=== PATIENT | male | born 1995 | race Two or more races ===

== ENCOUNTER 2019-01-02 00:07 | Emergency (ER) | payer OTHER ==
[~2019-01-02] VITALS: Ht 170.2 cm; Wt 81.6 kg
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
[2019-01-02] MEDS ORDERED: HALOPERIDOL LACTATE INJ 5 MG/ML VIAL ONE (00:10)
[2019-01-02] MEDS ORDERED: diphenhydrAMINE HCL 50 MG/ML VIAL ONE (00:10)
--- NOTE | 2019-01-02 00:10 | NUR ---
SEEN AND EXAMINED BY .
[2019-01-02] MEDS ORDERED: LORAZEPAM INJ 2 MG/ML VIAL ONE (00:11)
--- NOTE | 2019-01-02 00:28 | NUR ---
IV LINE ESTABLISHED, BLOOD DRAWNED AND SENT TO LAB.
[2019-01-02] MEDS ORDERED: diphenhydrAMINE HCL 50 MG/ML VIAL IM ONE (00:30)
[2019-01-02] MEDS ORDERED: LORAZEPAM INJ 2 MG/ML VIAL IM/IV ONE (00:30)
[2019-01-02] MEDS ORDERED: HALOPERIDOL LACTATE INJ 5 MG/ML VIAL IM ONE (00:30)
[2019-01-02 00:33] LABS: BASOPHILS # (AUTO) 0.1 /CMM (0.0-0.2); BASOPHILS % (AUTO) 0.6 % (0.0-2.0); EOSINOPHILS % (AUTO) 0.1 % (0.0-6.0); HEMATOCRIT 48 % (39-51); HEMOGLOBIN 16.1 g/dL (13.5-17.5); LYMPHOCYTES # (AUTO) 1.4 /CMM (0.8-4.8); MEAN CORPUSCULAR HGB CONC 34 g/dl (31.0-36.0); MEAN CORPUSCULAR VOLUME 95 fL (80-96); MONOCYTES # (AUTO) 0.8 /CMM (0.1-1.30); MONOCYTES % (AUTO) 5.7 % (2.0-12.0); NEUTROPHILS # (AUTO) 11.8 /CMM (1.8-8.9); NEUTROPHILS % (AUTO) 83.6 % (43.0-81.0); PLATELET COUNT (AUTO) 264 /CMM (150-450); RED BLOOD CELL COUNT(AUTO) 5.04 MIL/uL (4.5-6.0); WHITE BLOOD COUNT (AUTO) 14.1 K/uL (4.3-11.0)
[2019-01-02 00:38] LABS: CALCIUM, SERUM 8.8 mg/dL (8.5-10.1); CREATININE 1.5 mg/dL (0.6-1.3); POTASSIUM 3.6 mmol/L (3.5-5.1)
[2019-01-02] MEDS ORDERED: CT SWABBABLE VALVE TRANS SET 1 EA INFUS.SET MC ONE (00:50)
[2019-01-02] MEDS ORDERED: IOHEXOL-300 100 ML VIAL IV ONE ×2 (00:50→01:13)
[2019-01-02] MEDS ORDERED: IV NS 0.9% 250 ML IV ONE (00:50)
--- NOTE | 2019-01-02 00:55 | NUR ---
PT IS WHEELED TO CT SCAN VIA [facility].
--- NOTE | 2019-01-02 01:25 | NUR ---
PT IS BACK FROM THE CT SCAN.
[2019-01-02] MEDS ORDERED: IV NS 0.9% 1,000 ML IV ONE (01:30)
[2019-01-02] MEDS ORDERED: LIDOCAINE /MPF 1% VIAL 5 ML VIAL ONE (01:32)
--- NOTE | 2019-01-02 01:49 | NUR ---
SUTURING DONE BY DR. BARILLAS.
[2019-01-02 02:51] LABS: CALCIUM, SERUM 7.9 mg/dL (8.5-10.1); CREATININE 1.3 mg/dL (0.6-1.3); POTASSIUM 3.7 mmol/L (3.5-5.1)
[2019-01-02 03:16] VITALS: BP 135/73
--- NOTE | 2019-01-02 03:16 | NUR ---
IV removed. Catheter intact and site benign. Pressure and 4x4 applied to site. No bleeding noted. Patient discharged in custody in stable condition. Written and verbal after care instructions given. Patient verbalizes understanding of instruction.
== END 2019-01-02 03:17 ==
LOC: ER 00:09
DX: S01.511A Laceration without foreign body of lip, initial encounter (principal); F10.229 Alcohol dependence with intoxication, unspecified; E86.0 Dehydration; Y90.7 Blood alcohol level of 200-239 mg/100 ml; Z02.89 Encounter for other administrative examinations; Y04.2XXA Assault by strike against or bumped into by another person, initial encounter; Y93.89 Activity, other specified; Y92.89 Other specified places as the place of occurrence of the external cause; Y99.8 Other external cause status
CPT/HCPCS: 12011; 36415; 70450; 70486; 71260; 72125; 74177; 80048 ×2; 80307; 85025; 96360; 96372 ×3; 99284; A6403; J1200; J1630; J2060; J3490; J7030; J7050; Q9967 ×2; G0480